=== PATIENT | female | born 1980 | race Caucasian/White ===

== ENCOUNTER → 2016-09-05 | Outpatient (CLI) | payer MEDICAID ==
[~2016-09-05] MED LIST: ADVAI100I PO; ALBU8I INH; IBUP600 PO; LABE100 PO; LABE200 PO; OXYC1SOL5 PO; PRENCAP6 PO
== END ==
LOC: HPND 08:39
PROVIDERS: ATTEND Obstetrics & Gynecology
DX: O09.522 Supervision of elderly multigravida, second trimester (principal); O10.912 Unspecified pre-existing hypertension complicating pregnancy, second trimester; Z3A.22 22 weeks gestation of pregnancy
CPT/HCPCS: 76811; 76825; 76827; 93325

== ENCOUNTER → 2016-10-05 | Outpatient (CLI) | payer MEDICAID | LOC: HPND 09:01 | PROVIDERS: ATTEND Obstetrics & Gynecology | DX: O09.522 Supervision of elderly multigravida, second trimester (principal); O10.912 Unspecified pre-existing hypertension complicating pregnancy, second trimester; Z3A.28 28 weeks gestation of pregnancy | CPT/HCPCS: 76816 ==